=== PATIENT | male | born 1980 | race Caucasian/White ===

== ENCOUNTER → 2021-09-10 00:03 | Outpatient (CLI) | payer BC, SELFPAY ==
[2021-09-10 19:57] LABS: SARS-CoV-2 RNA PCR Negative
== END ==
PROVIDERS: PCP Internal Medicine Endocrinology, Diabetes & Metabolism; Visit Provider Surgery
DX: Z01.812 Encounter for preprocedural laboratory examination (principal); Z20.822 Contact with and (suspected) exposure to COVID-19
CPT/HCPCS: C9803; U0003; U0005

== ENCOUNTER 2021-09-12 11:19 | Outpatient (CLI) | payer BC, SELFPAY ==
[2021-09-12 11:47] LABS: Alanine Aminotransferase 31 U/L (4-50); Albumin Level 4.8 g/dL (3.5-5.1); Alkaline Phosphatase 78 U/L (38-126); Amylase 97 U/L (30-110); Aspartate Amino Transferase 28 U/L (17-59); Bilirubin,Total 0.8 mg/dL (0.2-1.3); Lipase 87 U/L (23-300)
== END 2021-09-12 11:20 | disposition home or self-care (01) ==
LOC: ANHSURGERY 11:23
PROVIDERS: PCP Internal Medicine Endocrinology, Diabetes & Metabolism; Visit Provider Surgery
DX: Z01.818 Encounter for other preprocedural examination (principal); K80.00 Calculus of gallbladder with acute cholecystitis without obstruction
CPT/HCPCS: 36415; 80076; 82150; 83690; 86850; 86900; 86901

== ENCOUNTER 2021-09-14 00:23 | Day surgery (SDC) | payer BC, SELFPAY ==
[2021-09-06 08:20] VITALS: BMI 21.8
--- NOTE | 2021-09-06 08:47 | PC.NURSE ---
Report to the Outpatient Waiting Room, entrance under the green pavilion located off [facility], at time __10:00am on date ___09/14/2021____. OR Time: ___12:00pm . - You and your visitor will be asked a series of questions to screen for COVID 19 for your protection. - A mask is required within the hospital. - Only one visitor is allowed at this time. Patient visitors will be guided where to wait when not with patient. Preoperative COVID Testing Requirements: No COVID Test needed if: (proof is required; if not received patient will have Rapid Test prior to entry) - Patient has received COVID Vaccine at least 14 days prior to procedure date or - Patient has positive COVID test result within last 90 days of surgery date. COVID Test needed if above criteria is not met If not COVID vaccinated a COVID test must be conducted within 72 hours of surgery and patient is asked to isolate self from time of testing until procedure. You will go to the [facility] for your COVID testing. The [facility] Testing site is located at the corner of [address] [facility]. You will only be called if COVID results are positive and your surgeon may reschedule your elective surgery date. Patients may have clear liquids (water, carbonated beverages, clear teas, apple juice) until 3 hours prior to surgery with a maximum of 20 ounces. Must be consumed by 9:00am day of surgery. - No food from midnight until time of surgery - Infants may have breast milk until 4 hours before surgery, formula 6 hours prior to surgery. - Children will be allowed to drink immediately following surgery. If applicable, please bring a bottle or sippy cup to assist with drinking. Juice, water, soda, and popsicles are readily available. For infants on formula, please bring formula the day of surgery. Pacifiers are allowed. Take the following medications with a SIP of water the morning of surgery: none Medications to discontinue per physician none Date to take last dose N/A Please no make-up, nail sami, hairspray, perfume, deodorant, or body powder the day of surgery. No jewelry (including any body piercings) or valuables the day of surgery, leave them at home. Please take a shower the morning of surgery with a hibiclens wash. Wear comfortable, loose fitting clothing. - Jewelry must be removed prior to entering the operating room. Rings and piercings that are not removed may be cut off. - The hospital will not accept responsibility for valuables. - Please leave all valuables, including medications, at home the day of surgery. If you are going home after surgery, a licensed frontload driver must drive you home. - NO public transportation without another adult. - We recommend that an adult stay with you for 24 hours following discharge. - We also recommend that you do not drive, make important decision, drink alcoholic beverages, or take any drugs that were not prescribed by your health care provider for at least 24 hours after your discharge time. Follow any additional instructions given to you from your surgeon. Telephone instructions given to ___Milady () and asked if any additional questions and then verbalized understanding. Patient advised to call surgeon office or pre surgery nurse liaison [phone] if any additional questions.
[2021-09-14] VITALS (8 sets, daily range): BP systolic 113–143; BP diastolic 77–98; PULSE 61–77; RESP 12–22; TEMP 36.3–36.5; O2SAT 99–100; BMI 24.6
[2021-09-14] MEDS: LACTATED RINGERS 1,000 ML 30 ML IV CONT ×2 (10:40→14:15)
[2021-09-14] MEDS: ACETAMINOPHEN 500 MG TABLET 1000 MG PO (10:46)
[2021-09-14] MEDS: KETOROLAC 15 MG/ML VIAL (*BKC) IV PUSH ×2 (10:46→16:01)
--- NOTE | 2021-09-14 11:55 | SUR.PREOP ---
1155- Notified patient and spouse Milady surgery start time will be delayed. Patient and spouse verbalized understanding.
--- NOTE | 2021-09-14 12:04 | WPDANESEPPF ---
Anes - Initial Pre Proc Eval Procedure: Operation Date: 09/14/21 12:00 Proposed Procedures p Laparoscopic Cholecystectomy, Possible Open - Oliverio Burkett DO Date/Time: 09/14/21 12:04 Surgeon: Oliverio Burkett DO Pre Op Diagnosis: Acute Calculous Cholecystitis Patient Data Age: 40 Gender: M Height: 1.83 m Weight: 82.45 kg Last Vital Signs Temp 36.5 C 09/14/21 10:15 Pulse 71 09/14/21 10:15 Resp 16 09/14/21 10:15 BP 113/77 09/14/21 10:15 Pulse Ox 99 09/14/21 10:15 Allergies Allergy/AdvReac Type Severity Reaction Status Date / Time No Known Allergies Allergy Verified 09/06/21 08:39 Home Medications Medication Instructions Recorded Confirmed Type No Home Medications 09/06/21 09/06/21 History Patient hx anesthesia problems: none Family hx anesthesia problems: none Results Review: All pre-operative results and documents have been reviewed as part of the pre-operative evaluation. [facility] Past Medical History Medical History History of depression History of kidney stones Family History Family History Father Brain cancer Mother Diabetes mellitus Social History Social History Years smoked: 20 Smoking status: Current every day smoker Tobacco type: cigarettes and e-cigarettes/vaping Alcohol intake: never Substance use: former Other substance usage details: suicide attempts Living arrangements: with family Additional living arrangements comments: Patient lives with and daughter. Additional occupation/education comments: Self Employed Spiritual care concerns: No Anes - Eval Final PreProcedure Day of Procedure 09/14/21 12:04 Patient weight: normal Heart: regular rate and rhythm Lungs: decreased breath sounds Airway: Mallampati scale class II Neurological: alert and oriented Last oral intake: >/= 8 hours ASA classification: II Emergent: no Anesthetic plan: proceed Anesthesia type and monitoring: general ETT and standard monitoring Results Review: All pre-operative results and documents have been reviewed as part of the pre-operative evaluation. Informed Consent: The patient's anesthetic plan and its attendant risks and benefits were discussed with the patient/family/POA. Questions were solicited and answers provided to the satisfaction of the patient/family/POA.
--- NOTE | 2021-09-14 12:50 | PM.IMHP ---
H&P: HPI History of Present Illness Date/Time: 09/14/21 12:50 Chief Complaint: Acute cholecystitis Narrative: This is a 40-year-old man who presents for laparoscopic cholecystectomy. He has a prior episode of acute cholecystitis and went to an outside hospital emergency department. His imaging showed evidence of acute cholecystitis but he recovered from there and followed up as an outpatient for further surgical discussions. He reports no changes since last seen in the office. Review of Systems Review of Systems: All systems reviewed & are unremarkable except as noted in HPI and below Constitutional: Constitutional: Denies chills, Denies fever(s), Denies headache(s) and Denies weight loss Eyes: Eyes: Denies change in vision ENT: Denies dizziness, Denies headache(s), Denies neck mass and Denies throat swelling Cardiovascular: Cardiovascular: Denies chest pain, Denies lightheadedness and Denies dyspnea Respiratory: Respiratory: Denies cough, Denies dyspnea and Denies wheezing Gastrointestinal: Gastrointestinal: Denies abdominal pain, Denies change in bowel habits, Denies nausea and Denies vomiting Genitourinary: Genitourinary: Denies hematuria and Denies dysuria Musculoskeletal: Musculoskeletal: Reports as per HPI Integumentary/Breasts: Skin/Breast: Reports as per HPI Neurologic: Denies dizziness and Denies headache(s) Allergic/Immunologic: Allergic/Immunologic: Denies throat swelling and Denies wheezing PMF Past Medical History Medical History History of depression History of kidney stones Family History Family History Father Brain cancer Mother Diabetes mellitus Social History Social History Years smoked: 20 Smoking status: Current every day smoker Tobacco type: cigarettes and e-cigarettes/vaping Alcohol intake: never Substance use: former Other substance usage details: suicide attempts Living arrangements: with family Additional living arrangements comments: Patient lives with and daughter. Additional occupation/education comments: Self Employed Spiritual care concerns: No Meds Home Medications and Allergies Home Medications Medication Instructions Recorded Confirmed Type No Home Medications 09/06/21 09/06/21 History Allergies Allergy/AdvReac Type Severity Reaction Status Date / Time No Known Allergies Allergy Verified 09/06/21 08:39 Vital Signs Vital Signs - 24 hr 09/14/21 10:15 Temperature 36.5 C Pulse Rate 71 Respiratory Rate 16 Blood Pressure 113/77 Pulse Oximetry 99 Exam Const: General: no acute distress and alert Orientation/consciousness: patient oriented x3 HENMT: Head: normocephalic and atraumatic Ears: hearing grossly normal bilaterally General nose exam: Normal nares present Mouth: Yes Normal oral and palatal mucosa present Eyes: Periorbital: periorbital findings normal Sclera: sclerae normal EOM: EOMs intact bilaterally Neck: Neck: normal visual inspection, no lymphadenopathy and trachea midline Chest: Chest palpation & inspection: normal inspection of the chest Resp: Effort & Inspection: normal respiratory effort Auscultation: clear to auscultation bilaterally Cardio: Jugular venous distension: no JVD Rate: regular rate Rhythm: regular rhythm Heart sounds: S1 normal heart sound present and S2 normal heart sound present Peripheral pulses: Peripheral pulses 2+ throughout GI: Inspection: normal to inspection GI Palp: Yes Soft to palpation, No Tenderness to palpation present (GI), No Guarding due to palpation present (GI) and No Rebound tenderness present Percussion: Yes normal to percussion Auscultation: normal bowel sounds : General: Yes no CVA tenderness Back/Spine/Pelvis: Back: no CVA tenderness Neuro: General: patien
--- NOTE | 2021-09-14 12:53 | WPDHPUPDATE1 ---
History and Physical Update Update Date/Time: 09/14/21 12:53 History and Physical has been reviewed, including an updated exam of the patient. There are NO changes in the patient's condition. Risks, benefits, and alternatives have been discussed and questions answered. Patient agrees to proceed with procedure.
[2021-09-14] MEDS: ceFAZolin 2 GM/D5W 50 ML 2 GM/50 ML BAG IVPB (13:12)
[2021-09-14] MEDS: BUPIVACAINE HCL 0.5% PF 30 ML VIAL INFILTRATE (13:32)
--- NOTE | 2021-09-14 14:06 | W.PM.PROC2 ---
Procedure Note - Detailed Date of Procedure 09/14/21 Pre-op Diagnosis Acute Calculous Cholecystitis Post-op Diagnosis same Procedure Performed Laparoscopic cholecystectomy Surgeon Oliverio Burkett, DO Anesthesia general and local (0.5% bupivacaine) Indications This is a 40-year-old man who presented with an episode of upper abdominal pain about 2 months ago. He presented to [facility] Emergency Department on 07/25/2021. CT in the emergency department showed evidence of acute calculous cholecystitis. He was sent home and he followed up as an outpatient in my office. I discussed options with the patient and decision was made to proceed with laparoscopic cholecystectomy, possible open. Findings Laparoscopic cholecystectomy was performed. The gallbladder was dilated and had several pericholecystic adhesions. There was a large stone within the gallbladder body. The cystic duct appeared normal in size. No other significant abnormalities were noted. The gallbladder was removed and sent to the lab for pathology. Description of Procedure Procedure as well as risks, benefits, and alternatives were discussed with patient. Written consent was obtained and placed in chart prior to procedure. The patient was brought back to surgical suite. Patient was placed in supine position on operating table. Time-out was done to confirm patient and procedure. Patient was then intubated by the anesthesia department. Abdomen was prepped and draped in sterile fashion using chlorhexidine prep. 0.5% bupivacaine with epinephrine was infiltrated at each site of incision. An 11 millimeter vertical incision was made at the inferior portion of the umbilicus using a 15 blade scalpel. Blunt dissection was carried down to the linea alba. The linea alba was then incised using a 15 blade scalpel. The peritoneum was then bluntly entered. An 11 millimeter trocar was inserted and carbon dioxide insufflation was used to create a pneumoperitoneum. The camera was inserted and the abdomen was inspected. The patient was placed in reverse Trendelenberg position and rotated slightly to the left. A 5 millimeter incision was made in the epigastric region, and a 5 millimeter trocar was inserted under direct visualization. Two 5 millimeter incisions were made in the right upper quadrant, and two 5 millimeter trocars were inserted under direct visualization. The gallbladder was identified and grasped at the fundus and retracted superiorly. It was then grasped at the infundibulum retracted laterally. Careful dissection around the neck of the gallbladder was performed using blunt dissection with a [place] grasper and hook electrocautery. The cystic duct was identified, and a window was created behind it. The cystic artery was also identified and a window was created behind it. The critical view of safety was identified, visualizing the cystic duct running directly into the neck of the gallbladder, and the cystic artery running directly into the wall of the gallbladder. A 5 millimeter clip general adjuster was then used to place 2 clips proximally and 1 clip distally on both the cystic duct and cystic artery. They were then both transected using endoscopic scissors. Once safely away from the cong hepatitis, the gallbladder was dissected free from the liver bed using hook electrocautery. Hemostasis was achieved along the way. The gallbladder was removed completely and then removed through the umbilical port. The liver bed was then inspected. Hemostasis appeared adequate, and our clips appeared secure. The area was gently irrigated with sterile saline. No other abnormalities were seen. The patient was flattened out in bed, and 1 final inspection was made around the abdominal cavity. The ports were then removed under direct visualization, the camera was removed, and the pneumoperitoneum was released. The fascia of the umbilical incision was approximated using an 0 Vicryl figure-of-
[2021-09-14] MEDS: fentaNYL CITRATE INJ (*CRX) 100 MCG/2 ML VIAL 25 MCG IV PUSH ×4 (14:49→15:04)
[2021-09-14] MEDS: oxyCODONE HCL (*CRX) 5 MG TAB IR PO (15:23)
== END 2021-09-14 16:15 | disposition home or self-care (01) ==
PROVIDERS: PCP Internal Medicine Endocrinology, Diabetes & Metabolism; Visit Provider Surgery
PROC: 0FT44ZZ Resection of Gallbladder, Percutaneous Endoscopic Approach (ICD-10-PCS; CPT 47562; principal; 2021-09-14 12:00)
DX: K80.10 Calculus of gallbladder with chronic cholecystitis without obstruction (principal); F17.210 Nicotine dependence, cigarettes, uncomplicated; F17.290 Nicotine dependence, other tobacco product, uncomplicated
CPT/HCPCS: 47562; 88304; A9270; J0690; J1100; J1885; J2250; J2405; J2704; J2710; J3010; J7030; J7120

== ENCOUNTER 2024-03-21 16:19 | Emergency (ER) | payer SELFPAY ==
[2024-03-21] VITALS (25 sets, daily range): BP systolic 94–121; BP diastolic 65–90; PULSE 60–79; RESP 13–20; TEMP 36.4; O2SAT 97–100
--- NOTE | ~2024-03-21 | CT_ITS ---
CT brain wo con Ordering provider: Sonya Alford MD History: 43 years Male with . mental status . Comparison: None. Technique: CT of the head without contrast. Radiation reduction technique utilized. FINDINGS: BRAIN PARENCHYMA AND CSF SPACES: No midline shift, mass effect or hemorrhage. The brain parenchyma a nd CSF spaces are otherwise normal. VISUALIZED PARANASAL SINUSES: Well aerated. MASTOIDS: Well aerated. BONES: The bones appear intact. SOFT TISSUES: Visualized nasopharynx is normal. Superficial soft tissues are normal. IMPRESSION: No acute intracranial findings. Reviewed, dictated and finalized at location A.
--- NOTE | 2024-03-21 16:22 | ECG_ITS ---
[facility] [address] Test Date: 2024-03-21 Pat Name: Rocky Uriarte Department: Room: Gender: M Medical Accountant: : 1980 Requested By: Sonya Alford Order Number: [id number] Michael MD: Alex Chamberlain M.D. Measurements Intervals [place] Rate: 71 P: 63 VA: 180 QRS: 70 QRSD: 92 T: 60 QT: 389 QTc: 423 Interpretive Statements SINUS RHYTHM NORMAL ELECTROCARDIOGRAM No previous ECG available for comparison Electronically Signed On 03-22-2024 07:59:12 CDT by Alex Chamberlain M.D.
[2024-03-21 16:47] LABS: Basophils Percent Auto 0.5 % (0.2-1.2); Eosinophils Absolute Auto 0.2 K/mm3 (0-0.3); Eosinophils Percent Auto 2.9 % (0-4.4); Hematocrit 46.9 % (42.0-52.0); Hemoglobin 16.1 g/dL (14.0-18.0); Immature Granulocyte Absolute 0.01 K/mm3 (0.00-0.031); Immature Granulocyte Percent A 0.2 % (0-0.5); Lymphocytes Absolute Auto 1.11 K/mm3 (0.9-3.2); Lymphocytes Percent Auto 17.1 % (18.3-44.2); Mean Corpuscular HGB Conc 34.3 g/dl (32-36); Mean Corpuscular Volume 87.3 fl (80-100); Mean Platelet Volume 10.1 fl (7.4-10.4); Monocytes Absolute Auto 0.5 K/mm3 (0.1-0.6); Monocytes Percent Auto 7.5 % (2.6-8.5); Neutrophils Absolute Auto 4.7 K/mm3 (1.3-6.7); Neutrophils Percent Auto 71.8 % (45.5-73.1); Platelet Count Result 201 k/mm3 (150-375); Red Blood Count 5.37 M/mm3 (4.6-6.20); Red Cell Distribution Width 12.3 % (11.5-14.5); White Blood Count 6.5 K/mm3 (4.5-10.0)
--- NOTE | 2024-03-21 16:48 | PC.NURSE ---
sitter at bedside
--- NOTE | 2024-03-21 16:50 | PC.NURSE ---
Spoke with Lauryn at [place] [facility]. States to use supportive care. Benzo half life 12 hours, peak in 2 hours. Do Not reverse the Benzo's.
--- NOTE | 2024-03-21 16:52 | PC.NURSE ---
Case # [id number] - [place] [facility]
[2024-03-21 16:57] LABS: Alanine Aminotransferase 23 U/L (6-50); Albumin Level 4.7 g/dL (3.5-5.1); Alkaline Phosphatase 73 U/L (38-126); Anion Gap 3 mmol/L (4-12); Aspartate Amino Transferase 25 U/L (17-59); Bilirubin,Total 1.4 mg/dL (0.2-1.3); Blood Urea Nitrogen 15 mg/dL (9-20); Calcium 9.1 mg/dL (8.4-10.2); Carbon Dioxide 29 mmol/L (22-30); Chloride 106 mmol/L (98-107); Estimated CRCL calculation 94 ml/min; Estimated Glomerular Filt Rate > 60; Glucose 81 mg/dL (65-110); Potassium 4.4 mmol/L (3.4-5.0); Sodium 138 mmol/L (137-145)
[2024-03-21 17:20] LABS: Appearance Urine Clear (Clear); Bilirubin Urine Negative (Negative); Blood Urine Negative (Negative); Color Urine Yellow (Yellow); Glucose Urine UA Negative (Negative); Ketones Urine Negative (Negative); Leukocyte Esterase Ur Negative LEU/UL (Negative); Nitrate Urine Negative (Negative); Protein Urine Negative (Negative); pH Urine 7.5 (5.0-9.0)
[2024-03-21 17:25] LABS: SARS-CoV-2 RNA PCR Negative (Negative)
[2024-03-21 18:22] LABS: Amphetamine Screen Urine Negative (Negative); Barbiturate Screen Urine Negative (Negative); Benzodiazepines Screen Urine Negative (Negative); Cannabinoid Screen Urine Negative (Negative); Cocaine Screen Urine Negative (Negative); Methadone Screen Urine Negative (Negative); Opiate Screen Urine Negative (Negative); Phencyclidine Screen Urine Negative (Negative)
--- NOTE | 2024-03-21 18:25 | ED.OVERDOSE ---
HPI - Overdose General Chief Complaint: Overdose <Sonya Alford MD - Last Filed: 03/22/24 10:02> Stated Complaint: overdose <Sonya Alford MD - Last Filed: 03/22/24 10:02> Time Seen by Provider: 03/21/24 17:45 <Sonya Alford MD - Last Filed: 03/22/24 10:02> History of Present Illness HPI Narrative: Patient is a 43-year-old male with history of depression here after a intentional overdose of benzodiazepines to try to kill himself. He states around 3:00 a.m. in the morning he took approximately 35 x 2 mg tablets of Ativan and drink a large bottle of unknown alcohol. His last drink was around 330 in the morning. He states that his family found him and called an ambulance to bring him into the hospital. He does note that he was trying to kill himself by overdose. He has a prior history of attempted suicide via overdose, was admitted to [facility] at that time. Currently denies any pain. Denies any coingestion. <Sonya Alford MD - Last Filed: 03/22/24 10:02> Related Data Home Medications: Home Medications Medication Instructions Recorded Confirmed No Home Medications 10/11/21 10/11/21 <Sonya Alford MD - Last Filed: 03/22/24 10:02> Allergies/Adverse Reactions: Allergies Allergy/AdvReac Type Severity Reaction Status Date / Time No Known Allergies Allergy Verified 10/11/21 09:18 <Sonya Alford MD - Last Filed: 03/22/24 10:02> Review of Systems Review of Systems: All systems reviewed & are unremarkable except as noted in HPI and below <Sonya Alford MD - Last Filed: 03/22/24 10:02> PMFSH Past Medical History Medical History: Medical History History of depression History of kidney stones <Sonya Alford MD - Last Filed: 03/22/24 10:02> Surgical History Surgical History: Surgical History Hx laparoscopic cholecystectomy 09/14/21 <Sonya Alford MD - Last Filed: 03/22/24 10:02> Family History Family History: Family History Father Brain cancer Mother Diabetes mellitus <Sonya Alford MD - Last Filed: 03/22/24 10:02> Social History Social History: Social History Years smoked: 20 Smoking status: Current every day smoker Tobacco type: cigarettes and e-cigarettes/vaping Alcohol intake: never Substance use: former Substance use type: does not use Other substance usage details: suicide attempts Living arrangements: with family Additional living arrangements comments: Patient lives with and daughter. Occupation/Education: other Additional occupation/education comments: Self Employed Spiritual care concerns: No <Sonya Alford MD - Last Filed: 03/22/24 10:02> Exam Narrative: GENERAL: Well-appearing, well-nourished, and in no acute distress. HEAD: Normocephalic, atraumatic. EYES: PERRLA and EOMI. Pupils 4 mm, equal, reactive. ENT: Nares clear. Mucous membranes moist. NECK: Supple. CHEST: Clear to auscultation. No respiratory distress. HEART: Regular rate and rhythm. Normal peripheral pulses. ABDOMEN: Soft, nontender, nondistended. EXTREMITIES: Normal range of motion. No edema. SKIN: Warm, dry, no rash. NEURO: No focal deficits. Drowsy but does awake to voice and answer questions appropriately. PSYCH: Normal mood and affect. <Sonya Alford MD - Last Filed: 03/22/24 10:02> Course Course Emergency Course: Chart review performed. Patient is here via EMS after taking about 352 mg tablets of Ativan around 3:00 a.m. this morning. He did reportedly take them an attempt to kill himself. Triage vitals normal. Triage protocol lab work reviewed, CBC unremarkable, electrolytes within normal limits, bilirubin minimally elevated at 1.4, remainder of LFTs normal. UDS negative. COVID negative. Sali
[2024-03-21 18:48] LABS: Add Urine Microscopic? NO
--- NOTE | 2024-03-21 18:50 | PC.NURSE ---
Spoke with Lauryn from poison control
[2024-03-21 18:54] LABS: Acetaminophen < 10 ug/mL (10-30); Ethanol < 10 mg/dL (<10); Salicylate < 1.0 mg/dL (2-20)
--- NOTE | 2024-03-21 23:23 | PC.NURSE ---
Per EDP Dr. Cadena CRISIS can be called
--- NOTE | 2024-03-21 23:30 | PC.NURSE ---
Spoke with Odalis at poison control who states that the case will be closed.
--- NOTE | 2024-03-22 01:33 | PC.NURSE ---
[facility] called and advised that there is no bed for the patient.
== END 2024-03-22 04:54 ==
PROVIDERS: Emergency Medicine; Emergency Provider Emergency Medicine; PCP Internal Medicine Endocrinology, Diabetes & Metabolism
DX: T42.4X2A Poisoning by benzodiazepines, intentional self-harm, initial encounter (principal); Z87.442 Personal history of urinary calculi; F32.A Depression, unspecified; Z20.822 Contact with and (suspected) exposure to COVID-19; F17.210 Nicotine dependence, cigarettes, uncomplicated
CPT/HCPCS: 36415; 70450; 80053; 80307; 81003; 84443; 85025; 87635; 93005; 99285